=== PATIENT | female | born 1995 | race Caucasian/White ===

== ENCOUNTER 2018-09-23 10:55 | Observation (INO) | payer BC ==
[2018-09-23] MEDS ORDERED: PREN-96 PO (11:22)
== END 2018-09-23 13:00 | disposition home or self-care (01) | DRG 833 ==
LOC: LDRP 10:55
PROVIDERS: ADMIT Obstetrics & Gynecology; ATTEND Obstetrics & Gynecology
DX: O48.0 Post-term pregnancy (principal); O99.513 Diseases of the respiratory system complicating pregnancy, third trimester; J04.0 Acute laryngitis; Z3A.40 40 weeks gestation of pregnancy
CPT/HCPCS: 59025; 76818; 81002; G0378

== ENCOUNTER 2018-09-25 12:57 | Observation (INO) | payer BC ==
[~2018-09-25 12:57] MED LIST: PREN-96 PO
[2018-09-25] MEDS ORDERED: AZIT250T8 PO (21:20)
== END 2018-09-25 15:00 | disposition home or self-care (01) | DRG 833 ==
LOC: LDRP 12:57
PROVIDERS: ADMIT Obstetrics & Gynecology; ATTEND Obstetrics & Gynecology
DX: O36.5930 Maternal care for other known or suspected poor fetal growth, third trimester, not applicable or unspecified (principal); O62.9 Abnormality of forces of labor, unspecified; O26.893 Other specified pregnancy related conditions, third trimester; N89.8 Other specified noninflammatory disorders of vagina; Z3A.39 39 weeks gestation of pregnancy
CPT/HCPCS: 59025; 76818; 81002; G0378

== ENCOUNTER 2018-09-25 20:22 | Inpatient (IN) | payer BC ==
[~2018-09-25] VITALS: Ht 167.6 cm; Wt 72.6 kg
[2018-09-25] MEDS ORDERED: LACT. RINGERS/OXYTOCIN 20UNITS 1,000 ML IV SCH (20:35)
[2018-09-25] MEDS ORDERED: LACTATED RINGER'S 1,000 ML IV SCH (20:35)
[2018-09-25] MEDS ORDERED: LIDOCAINE 2%HCL (LOCAL ANESTH.) INJ 20ML MDV ID PRN (20:45)
[2018-09-25] MEDS ORDERED: NALBUPHINE HCL 10 MG/1ml INJECTION IM PRN (20:45)
[2018-09-25] MEDS ORDERED: PROMETHAZINE HCL 25 MG/ML 1ML IV PRN (20:45)
[2018-09-25] MEDS ORDERED: WITCH HAZEL-GLYCERIN PAD TOP PRN (20:45)
[2018-09-25] MEDS ORDERED: PHISODERM TOP SOLN 240ML BTL TOP PRN (20:45)
[2018-09-25] MEDS ORDERED: DERMOPLAST 60ML BOTTLE TOP PRN (20:45)
[2018-09-25] MEDS ORDERED: METHYLERGONOVINE MALEATE 0.2 MG/ML AMP IM PRN (20:45)
[2018-09-25] MEDS ORDERED: AZIT250T8 PO (21:20)
[2018-09-25 21:24] LABS: Urine Bacteria NONE SEEN /hpf (None Seen); Urine Blood Negative /uL (Negative); Urine Mucus FEW (None Seen); Urine Specific Gravity 1.026 (1.001-1.035); Urine WBC 8 /hpf (0 - 5)
[2018-09-25 21:27] LABS: Basophils # (auto) 0 uL; Eosinophils # (auto) 0.1 uL; Eosinophils % (auto) 0.8 % (0.0-7.0); Lymphocytes # (auto) 1.3 uL; Neutrophils % (auto) 73.7 % (37.0-80.0); Red Cell Distribution Width 13.4 % (11.8-14.3)
[2018-09-25 21:29] LABS: Basophils % (auto) 0.2 % (0.0-2.0); Hematocrit 33.1 % (36.0-46.0); Hemoglobin 10.9 g/dL (12.2-16.2); Lymphocytes % (auto) 14.8 % (10.0-50.0); Mean Corpuscular Hemoglobin 26.6 pg (28.0-32.0); Mean Corpuscular Hgb Conc. 33.1 g/dL (32.0-36.0); Mean Corpuscular Volume 80.5 fL (80.0-100.0); Monocytes # (auto) 0.9 uL; Monocytes % (auto) 10.5 % (0.0-12.0); Neutrophils # (auto) 6.3 uL; Platelet Count (auto) 153 10^3/uL (140-450); Red Blood Cells 4.11 10^6/uL (4.0-5.20); White Blood Cell 8.5 10^3/uL (4.4-10.8)
[2018-09-25 21:37] LABS: Albumin 2.6 g/dL (3.4-5.0); Calcium 8.3 mg/dL (8.5-10.1); Potassium 4.3 mmol/L (3.5-5.1)
[2018-09-25 21:47] LABS: INR 0.83 (0.9-1.15); Partial Thromboplastin Time 24.3 sec (23.78-33.04)
[2018-09-25 21:51] LABS: Bilirubin, Total 0.2 mg/dL (0.2-1.0); Total Protein 6.4 g/dL (6.4-8.2)
[2018-09-27 05:09] LABS: RPR Non Reactive (Non Reactive)
== END 2018-09-25 22:30 | disposition home or self-care (01) | DRG 833 ==
LOC: LDRP 20:22
PROVIDERS: ADMIT Obstetrics & Gynecology; ATTEND Obstetrics & Gynecology
DX: O36.5930 Maternal care for other known or suspected poor fetal growth, third trimester, not applicable or unspecified (principal); Z3A.39 39 weeks gestation of pregnancy; Z88.0 Allergy status to penicillin
CPT/HCPCS: 36415; 59025; 80053; 81001; 81002; 85025; 85610; 85730; 86592; 86850; 86900; 86901; 96361; 96366; G0378

== ENCOUNTER 2018-09-28 21:01 | Inpatient (IN) | payer BC ==
[~2018-09-28] VITALS: Ht 167.6 cm; Wt 72.6 kg
[~2018-09-28 21:01] MED LIST changes: +AZIT250T8 PO
[2018-09-28] MEDS: LACTATED RINGER'S 1,000 ML IV SCH (21:19)
[2018-09-28] MEDS ORDERED: LACT. RINGERS/OXYTOCIN 20UNITS 1,000 ML IV SCH (21:19)
[2018-09-28] MEDS ORDERED: NALBUPHINE HCL 10 MG/1ml INJECTION IV PRN (21:30)
[2018-09-28] MEDS ORDERED: LIDOCAINE 2%HCL (LOCAL ANESTH.) INJ 20ML MDV ID ONE (21:30)
[2018-09-28] MEDS ORDERED: METHYLERGONOVINE MALEATE 0.2 MG/ML AMP IM PRN (21:30)
[2018-09-28] MEDS ORDERED: PHISODERM TOP SOLN 240ML BTL TOP PRN (21:30)
[2018-09-28] MEDS ORDERED: CARBOPROST TROMETHAMINE 250 MCG/1ML VIAL IM PRN (21:30)
[2018-09-28] MEDS ORDERED: WITCH HAZEL-GLYCERIN PAD TOP PRN (21:30)
[2018-09-28] MEDS ORDERED: DERMOPLAST 60ML BOTTLE TOP PRN (21:30)
[2018-09-28 22:00] LABS: Basophils # (auto) 0 uL; Eosinophils # (auto) 0.1 uL; Hemoglobin 11.2 g/dL (12.2-16.2); Lymphocytes # (auto) 1.3 uL; Mean Corpuscular Hemoglobin 26.3 pg (28.0-32.0); Monocytes # (auto) 0.7 uL; Neutrophils % (auto) 75.2 % (37.0-80.0)
[2018-09-28 22:02] LABS: Basophils % (auto) 0.5 % (0.0-2.0); Eosinophils % (auto) 0.7 % (0.0-7.0); Lymphocytes % (auto) 15.2 % (10.0-50.0); Mean Corpuscular Volume 79.7 fL (80.0-100.0); Monocytes % (auto) 8.4 % (0.0-12.0); Neutrophils # (auto) 6.4 uL; Nucleated Red Blood Cells % 0.2 %; Platelet Count (auto) 164 10^3/uL (140-450); Red Blood Cells 4.26 10^6/uL (4.0-5.20); Red Cell Distribution Width 13.4 % (11.8-14.3); White Blood Cell 8.5 10^3/uL (4.4-10.8)
[2018-09-28 22:19] LABS: Urine Bacteria FEW /hpf (None Seen); Urine Blood Negative /uL (Negative); Urine Hyaline Cast FEW /lpf (0 - 2); Urine Mucus FEW (None Seen); Urine Specific Gravity 1.032 (1.001-1.035); Urine WBC 4 /hpf (0 - 5)
[2018-09-28 22:20] LABS: Albumin 2.7 g/dL (3.4-5.0); Calcium 8.4 mg/dL (8.5-10.1); Potassium 3.5 mmol/L (3.5-5.1)
[2018-09-28 22:23] LABS: BUN/Creatinine Ratio 13.2; Bilirubin, Total 0.3 mg/dL (0.2-1.0); Total Protein 6.6 g/dL (6.4-8.2)
[2018-09-28 22:44] LABS: INR 0.82 (0.9-1.15); Prothrombin Time 8.9 sec (9.27-12.13)
[2018-09-29] MEDS ORDERED: NALOXONE HCL 0.4 MG/ML VIAL IV ONE ×2 (03:15→05:30)
[2018-09-29] MEDS ORDERED: LIDOCAINE HCL 2 %PF INJ 10ML AMP IJ ONE (03:15)
[2018-09-29] MEDS ORDERED: ePHEDrine SULFATE 50 MG/ML AMP IV ONE ×2 (03:15→05:30)
[2018-09-29] MEDS ORDERED: fentaNYL CITRATE 100 MCG/2 ML VL IV ONE (03:15)
[2018-09-29] MEDS ORDERED: TERBUTALINE SULFATE 1 MG/ML 1ML VIAL SC ONE (03:30)
[2018-09-29] MEDS ORDERED: fentaNYL W ROPIVACAINE 150 ML EPI SCH ×2 (03:40→05:30)
[2018-09-29] MEDS: LACTATED RINGER'S 1,000 ML IV SCH (05:19)
[2018-09-29] MEDS ORDERED: SODIUM CHLORIDE 0.9% 500 ML IV PRN (05:26)
[2018-09-29] MEDS ORDERED: LACT. RINGERS/OXYTOCIN 20UNITS 1,000 ML IV ONE (09:07)
[2018-09-29] MEDS ORDERED: diphenhdrAMINE HCL 50 MG/1 ML VL ONE (10:42)
[2018-09-29] MEDS ORDERED: diphenhdrAMINE HCL 50 MG/1 ML VL IV ONE (10:45)
[2018-09-29] MEDS: IBUPROFEN 600 MG TAB PO PRN ×2 (13:19→17:01)
[2018-09-29 15:25] VITALS: BP 127/71
[2018-09-29] MEDS ORDERED: ACETAMINOPHEN 325 MG TAB PO PRN (19:00)
[2018-09-29 19:24] VITALS: BP 125/77
[2018-09-29 23:10] VITALS: BP 126/72
[2018-09-30 03:00] VITALS: BP 131/76
[2018-09-30] MEDS: IBUPROFEN 600 MG TAB PO PRN ×2 (04:57→09:06)
[2018-09-30 05:11] LABS: RPR Non Reactive (Non Reactive)
[2018-09-30 06:44] VITALS: BP 126/76
[2018-09-30] MEDS: TETANUS-DIPTH-ACEL PERTUSSIS 0.5ML SYRG IM ONE ×2 (08:45→09:08)
== END 2018-09-30 10:05 | disposition home or self-care (01) | DRG 807 ==
LOC: LDRP 21:01
PROVIDERS: ADMIT Specialist; ATTEND Specialist
PROC: 10E0XZZ Delivery of Products of Conception, External Approach (ICD-10-PCS; principal; 2018-09-29)
PROC: 3E0R3BZ Introduction of Anesthetic Agent into Spinal Canal, Percutaneous Approach (ICD-10-PCS; 2018-09-29)
PROC: 00HU33Z Insertion of Infusion Device into Spinal Canal, Percutaneous Approach (ICD-10-PCS; 2018-09-29)
DX: O48.0 Post-term pregnancy (principal); Z37.0 Single live birth; O69.81X0 Labor and delivery complicated by cord around neck, without compression, not applicable or unspecified; Z3A.40 40 weeks gestation of pregnancy
CPT/HCPCS: 36415; 59025; 59409; 62282; 80053; 81001; 85025; 85610; 85730; 86592; 86850; 86900; 86901; 90715; 94762; 96365; 96366; 96372; A6257; G0378; J2590; J3010

== ENCOUNTER 2019-12-14 18:19 | Observation (INO) | payer BC ==
[~2019-12-14] VITALS: Ht 167.6 cm; Wt 68.0 kg
[~2019-12-14 18:19] MED LIST changes: -AZIT250T8 PO
[2019-12-14] MEDS ORDERED: LACTATED RINGER'S 1,000 ML IV ONE (19:00)
[2019-12-14 19:51] LABS: Basophils # (auto) 0 10 ^3/uL (0-0.2); Basophils % (auto) 0.3 % (0.0-2.0); Eosinophils # (auto) 0.1 10 ^3/uL (0-0.8); Monocytes # (auto) 0.6 10 ^3/uL (0-1.3); Red Cell Distribution Width 13.2 % (11.8-14.3)
[2019-12-14 19:52] LABS: Eosinophils % (auto) 0.7 % (0.0-7.0); Hematocrit 29.4 % (36.0-46.0); Lymphocytes # (auto) 1.2 10 ^3/uL (0.4-5.4); Lymphocytes % (auto) 15.9 % (10.0-50.0); Mean Corpuscular Hemoglobin 26.5 pg (28.0-32.0); Mean Corpuscular Hgb Conc. 33.9 g/dL (32.0-36.0); Mean Corpuscular Volume 78.4 fL (80.0-100.0); Monocytes % (auto) 8.1 % (0.0-12.0); Neutrophils # (auto) 5.7 10 ^3/uL (1.6-8.6); Nucleated Red Blood Cells % 0.1 %; Platelet Count (auto) 124 10^3/uL (140-450); Red Blood Cells 3.76 10^6/uL (4.0-5.20); White Blood Cell 7.7 10^3/uL (4.4-10.8)
[2019-12-14 20:04] LABS: Albumin 2.4 g/dL (3.4-5.0); Calcium 8.2 mg/dL (8.5-10.1); Potassium 3.8 mmol/L (3.5-5.1)
[2019-12-14 20:07] LABS: BUN/Creatinine Ratio 21.1
[2019-12-14 20:08] LABS: Bilirubin, Total 0.2 mg/dL (0.2-1.0); Total Protein 5.8 g/dL (6.4-8.2)
[2019-12-14 20:35] LABS: Urine Bacteria FEW /hpf (None Seen); Urine Blood Negative /uL (Negative); Urine Specific Gravity 1.013 (1.001-1.035); Urine WBC 2 /hpf (0 - 5)
[2019-12-14 20:39] LABS: Alcohol, Urine < 3.0 mg/dL (0-5); Amphetamine Screen, Urine NEGATIVE (NEGATIVE); Barbiturate Scree,Urine NEGATIVE (NEGATIVE); Benzodiazephine Screen, Urine NEGATIVE (NEGATIVE); Cannabinoid Screen, Urine NEGATIVE (NEGATIVE); Cocaine Screen, Urine NEGATIVE (NEGATIVE); Opiate Scree,Urine NEGATIVE (NEGATIVE); Phencyclidine Screen, Urine NEGATIVE (NEGATIVE)
[2019-12-14] MEDS ORDERED: NIFEdipine 10 MG CAP PO ONE (20:45)
[2019-12-14] MEDS ORDERED: BETAMETHASONE ACET (6MG/ML) 5ML VIAL IM ONE (21:15)
== END 2019-12-14 21:50 | disposition home or self-care (01) | DRG 833 ==
LOC: LDRP 18:19
PROVIDERS: ADMIT Obstetrics & Gynecology; ATTEND Obstetrics & Gynecology
DX: O60.03 Preterm labor without delivery, third trimester (principal); O36.8130 Decreased fetal movements, third trimester, not applicable or unspecified; O26.893 Other specified pregnancy related conditions, third trimester; R20.0 Anesthesia of skin; R41.0 Disorientation, unspecified; O99.333 Smoking (tobacco) complicating pregnancy, third trimester; F17.210 Nicotine dependence, cigarettes, uncomplicated; Z3A.33 33 weeks gestation of pregnancy
CPT/HCPCS: 36415; 59025; 76818; 80053; 80307; 81001; 81002; 82962; 85025; 87086; 96360; 96372; G0378; J0702; 96361; 96366

== ENCOUNTER 2019-12-15 20:38 | Observation (INO) | payer BC ==
[2019-12-15] MEDS ORDERED: BETAMETHASONE ACET (6MG/ML) 5ML VIAL IM ONE (20:45)
[2019-12-15] MEDS ORDERED: NIFEdipine 10 MG CAP PO ONE (21:15)
[2019-12-15] MEDS ORDERED: LACTATED RINGER'S 1,000 ML IV ONE (22:11)
[2019-12-15] MEDS ORDERED: LACTATED RINGER'S 1,000 ML IV SCH (22:11)
[2019-12-15] MEDS ORDERED: TERBUTALINE SULFATE 1 MG/ML 1ML VIAL SC ONE ×2 (23:41→23:45)
== END 2019-12-16 00:21 | disposition home or self-care (01) | DRG 833 ==
LOC: LDRP 20:38
PROVIDERS: ADMIT Specialist; ATTEND Specialist
DX: O60.03 Preterm labor without delivery, third trimester (principal); Z3A.33 33 weeks gestation of pregnancy
CPT/HCPCS: 59025; 81002; 96372; G0378; J3105; 96365

== ENCOUNTER 2020-01-18 06:50 | Inpatient (IN) | payer BC ==
[~2020-01-18] VITALS: Ht 157.5 cm; Wt 73.9 kg
[2020-01-18] MEDS ORDERED: LACT. RINGERS/OXYTOCIN 20UNITS 1,000 ML IV SCH (07:16)
[2020-01-18] MEDS ORDERED: LACTATED RINGER'S 1,000 ML IV SCH (07:16)
[2020-01-18] MEDS ORDERED: DERMOPLAST 60ML BOTTLE TOP PRN (07:30)
[2020-01-18] MEDS ORDERED: NALBUPHINE HCL 10 MG/1ml INJECTION IV PRN (07:30)
[2020-01-18] MEDS ORDERED: WITCH HAZEL-GLYCERIN PAD TOP PRN (07:30)
[2020-01-18] MEDS ORDERED: LIDOCAINE 2%HCL (LOCAL ANESTH.) INJ 20ML MDV ID ONE (07:30)
[2020-01-18] MEDS ORDERED: PHISODERM TOP SOLN 240ML BTL TOP PRN (07:30)
[2020-01-18] MEDS ORDERED: METHYLERGONOVINE MALEATE 0.2 MG/ML AMP IM PRN (07:30)
[2020-01-18 08:00] LABS: Basophils # (auto) 0 10 ^3/uL (0-0.2); Eosinophils # (auto) 0 10 ^3/uL (0-0.8); Lymphocytes # (auto) 0.9 10 ^3/uL (0.4-5.4); Mean Corpuscular Hgb Conc. 33.1 g/dL (32.0-36.0); Monocytes # (auto) 0.6 10 ^3/uL (0-1.3); Neutrophils # (auto) 6.9 10 ^3/uL (1.6-8.6); White Blood Cell 8.4 10^3/uL (4.4-10.8)
[2020-01-18 08:02] LABS: Basophils % (auto) 0.1 % (0.0-2.0); Eosinophils % (auto) 0.3 % (0.0-7.0); Hematocrit 30.5 % (36.0-46.0); Hemoglobin 10.1 g/dL (12.2-16.2); Lymphocytes % (auto) 10.1 % (10.0-50.0); Mean Corpuscular Hemoglobin 24.9 pg (28.0-32.0); Mean Corpuscular Volume 75.4 fL (80.0-100.0); Monocytes % (auto) 7.2 % (0.0-12.0); Neutrophils % (auto) 82.3 % (37.0-80.0); Nucleated Red Blood Cells % 0.1 %; Platelet Count (auto) 118 10^3/uL (140-450); Red Blood Cells 4.05 10^6/uL (4.0-5.20); Red Cell Distribution Width 14.6 % (11.8-14.3)
[2020-01-18 08:14] LABS: Urine Bacteria FEW /hpf (None Seen); Urine Blood Negative /uL (Negative); Urine Mucus FEW (None Seen); Urine Specific Gravity 1.028 (1.001-1.035); Urine WBC 13 /hpf (0 - 5)
[2020-01-18 08:15] LABS: INR 0.9 (0.9-1.15)
[2020-01-18] MEDS ORDERED: ePHEDrine SULFATE 50 MG/ML AMP IV ONE ×2 (08:15→09:15)
[2020-01-18] MEDS ORDERED: fentaNYL 200mCg/100ml W ROPIVA 100 ML EPI SCH ×3 (08:15→09:15)
[2020-01-18] MEDS ORDERED: LIDOCAINE HCL 2 %PF INJ 10ML AMP IJ ONE (08:15)
[2020-01-18] MEDS ORDERED: fentaNYL CITRATE 100 MCG/2 ML VL IV ONE (08:15)
[2020-01-18] MEDS ORDERED: NALOXONE HCL 0.4 MG/ML VIAL IV ONE ×2 (08:15→09:15)
[2020-01-18 08:30] LABS: Amphetamine Screen, Urine NEGATIVE (NEGATIVE); Barbiturate Scree,Urine NEGATIVE (NEGATIVE); Benzodiazephine Screen, Urine NEGATIVE (NEGATIVE); Cannabinoid Screen, Urine NEGATIVE (NEGATIVE); Cocaine Screen, Urine NEGATIVE (NEGATIVE); Opiate Scree,Urine NEGATIVE (NEGATIVE); Phencyclidine Screen, Urine NEGATIVE (NEGATIVE)
[2020-01-18 08:34] LABS: Albumin 2.8 g/dL (3.4-5.0); BUN/Creatinine Ratio 8.2; Calcium 8.3 mg/dL (8.5-10.1); Potassium 3.7 mmol/L (3.5-5.1)
[2020-01-18 08:37] LABS: Bilirubin, Total 0.3 mg/dL (0.2-1.0); Total Protein 6.6 g/dL (6.4-8.2)
[2020-01-18 08:44] LABS: Uric Acid 4.3 mg/dL (2.6-6.0)
[2020-01-18] MEDS ORDERED: SODIUM CHLORIDE 0.9% 500 ML IV PRN (09:10)
[2020-01-18 15:00] VITALS: BP 123/66
[2020-01-18] MEDS: IBUPROFEN 600 MG TAB PO PRN ×2 (15:48→19:20)
[2020-01-18 18:50] VITALS: BP 127/74
[2020-01-18 23:07] VITALS: BP 123/77
[2020-01-19 03:07] LABS: RPR Non Reactive (Non Reactive)
[2020-01-19 03:30] VITALS: BP 103/62
[2020-01-19] MEDS: IBUPROFEN 600 MG TAB PO PRN (04:14)
[2020-01-19 07:00] VITALS: BP 117/74
[2020-01-19 10:30] VITALS: BP 127/74
[2020-01-19 16:00] VITALS: BP 125/74
== END 2020-01-19 16:00 | disposition home or self-care (01) | DRG 807 ==
LOC: LDRP 06:50 → UNDOADMOB 06:50 → LDRP 06:55 → OBSVTOIN 06:55 → INTOOBSV 06:55 → LDRP 01-19 01:51
PROVIDERS: ADMIT Specialist; ATTEND Specialist
PROC: 10D07Z6 Extraction of Products of Conception, Vacuum, Via Natural or Artificial Opening (ICD-10-PCS; principal; 2020-01-18)
PROC: 10907ZC Drainage of Amniotic Fluid, Therapeutic from Products of Conception, Via Natural or Artificial Opening (ICD-10-PCS; 2020-01-18)
PROC: 3E0R3BZ Introduction of Anesthetic Agent into Spinal Canal, Percutaneous Approach (ICD-10-PCS; 2020-01-18)
PROC: 00HU33Z Insertion of Infusion Device into Spinal Canal, Percutaneous Approach (ICD-10-PCS; 2020-01-18)
DX: O69.81X0 Labor and delivery complicated by cord around neck, without compression, not applicable or unspecified (principal); Z37.0 Single live birth; Z3A.38 38 weeks gestation of pregnancy
CPT/HCPCS: 36415; 59025; 59409; 62282; 80053; 80307; 81001; 81002; 84112; 84550; 85025; 85610; 85730; 86592; 86850; 86900; 86901; 94760; 96361; 96365; G0378; J2590